=== PATIENT | male | born 2000 | race Caucasian/White ===

== ENCOUNTER 2019-01-30 11:51 | Emergency (ER) | payer BC, MEDICAID ==
[2019-01-30 12:28] VITALS: BP 103/64
--- NOTE | 2019-01-30 13:02 | UC ---
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 " -here w/ his mom, brother and nephew (nephew being seen for ST). -lives in group him (autism) but viisting his mom for the wknd. -has not been ill. no congestion. -no known traum + crusted kaleb this AM. - History of Current Complaint Chief Complaint: UCEye Stated Complaint: EYE IRRITATION Time Seen by Provider: 01/30/19 12:53 Pain Intensity: 0 - Allergies/Home Medications Allergies/Adverse Reactions: Allergies Allergy/AdvReac Type Severity Reaction Status Date / Time No Known Allergies Allergy Verified 01/30/19 12:22 Home Medications: Home Medications ARIPiprazole TAB* [Abilify 15 MG TAB*] 15 mg PO DAILY 01/30/19 [History Confirmed 01/30/19] Docusate Sodium [Stool Softener] 100 mg PO DAILY 01/30/19 [History Confirmed 12/11] Multivitamins/Minerals TAB* [Theragran/minerals TAB*] 1 tab PO DAILY 01/30/19 [ History Confirmed 01/30/19] clonazePAM TAB(*) [Klonopin TAB(*)] 1 mg PO TID PRN 01/30/19 [History Confirmed 01/30/19] PMH/Surg Hx/FS Hx/Imm Hx Previously Healthy: Yes - Surgical History Surgical History: Yes Surgery Procedure, Year, and Place: T&A - Social History Alcohol Use: None Substance Use Type: None Smoking Status (MU): Never Smoked Tobacco Household Exposure Type: Cigarettes Review of Systems All Other Systems Reviewed And Are Negative: Yes Constitutional: Positive: Negative Skin: Positive: Negative Eyes: Positive: Drainage, Eye Redness ENT: Positive: Negative Respiratory: Positive: Negative Cardiovascular: Positive: Negative Gastrointestinal: Positive: Negative Motor: Positive: Negative Neurovascular: Positive: Negative Musculoskeletal: Positive: Negative Neurological: Positive: Negative Psychological: Positive: Negative Is Patient Immunocompromised?: No Physical Exam Triage Information Reviewed: Yes Appearance: Well-Appearing, No Pain Distress, Well-Nourished Vital Signs: Initial Vital Signs Temp 98.2 F 01/30/19 12:20 Pulse 68 01/30/19 12:20 Resp 17 01/30/19 12:20 BP 103/64 01/30/19 12:20 Pulse Ox 99 01/30/19 12:20 Vital Signs Reviewed: Yes Eyes: Positive: Conjunctiva Inflamed, Discharge - crtusting d/c w sclera injextion. EOMI, PERRL, no FB ENT: Positive: Pharynx normal, TMs normal, Uvula midline. Negative: Sinus tenderness Neck exam: Normal Neck: Positive: Supple, Nontender, No Lymphadenopathy Respiratory Exam: Normal Respiratory: Positive: Lungs clear, Normal breath sounds, No respiratory distress, No accessory muscle use. Negative: Crackles, Rhonchi, Stridor, Wheezing Cardiovascular Exam: Normal Cardiovascular: Positive: RRR Abdominal Exam: Normal Psychological: Positive: Other: - not verbal at today's OV Skin Exam: Normal Skin: Negative: Rashes Eye Complaint Course/Dx - Differential Dx/Diagnosis Differential Diagnosis/HQI/PQRI: Conjunctivitis, Foreign Body Provider Diagnosis: Conjunctivitis Discharge ED - Sign-Out/Discharge Documenting (check all that apply): Patient Departure All imaging exams completed and their final reports reviewed: No Studies - Discharge Plan Condition: Stable Disposition: HOME Prescriptions: Gentamicin 0.3% OPHTH.SOLN* 1 drop RIGHT EYE Q4H 5 Days #1 btl Patient Education Materials: Conjunctivitis (ED) Referrals: Nikolas Vázquez MD [Primary Care Provider] - 5 Days Additional Instructions: You should follow up sooner if symptoms increase or persist. - Billing Disposition and Condition Condition: STABLE Disposition: Home
== END 2019-01-30 13:23 | disposition home or self-care (01) ==
LOC: UCCORT 11:51
DX: H10.9 Unspecified conjunctivitis (principal); F84.0 Autistic disorder
CPT/HCPCS: 99202; G0463